=== PATIENT | female | born 1940 | race Caucasian/White ===

== ENCOUNTER 2019-12-31 10:06 | Inpatient (IN) ==
[2019-12-31] MEDS ORDERED: Acetaminophen 325 MG TABLET PO PRN (11:59)
[2019-12-31] MEDS ORDERED: *HR* HYDROcodone/Acet 5/325 mg TABLET PO PRN (11:59)
[2019-12-31] MEDS ORDERED: Naloxone 0.4 MG/ML INJ IVP PRN (11:59)
[2019-12-31] MEDS ORDERED: Ondansetron 4 MG/2 ML VIAL IVP PRN (11:59)
[2019-12-31] MEDS ORDERED: Mag Hydrox/Al Hydrox/Simeth 30 ML UDC PO PRN (11:59)
[2019-12-31] MEDS ORDERED: MOM Conc 10 ML UD.LIQ PO PRN (11:59)
[2019-12-31] MEDS ORDERED: *HR* Heparin 5,000 UNIT/ML VIAL IVP PRN ×2 (12:04)
[2019-12-31] MEDS: Heparin 25,000 UNIT/250 ML D5W 25,000 UNIT/250 ML IV.SOLN IVC SCH ×2 (13:14→16:04)
[2019-12-31] MEDS: Metoprolol XL (24 HR) Succ 50 MG TAB.ER.24H PO SCH (14:06)
[2019-12-31] MEDS ORDERED: Perflutren Lipid Microsphere 1.3 ML in 0.9 % Sodium Chloride 8.7 ML IVP ONE (19:02)
[2020-01-01 01:50] LABS: Hematocrit 41.8 % (35.3-44.9); Hemoglobin 13.8 g/dL (11.5-15.4); Mean Corpuscular Hemoglobin 30.5 pg (28.0-33.3); Mean Corpuscular Volume 92.5 fL (83.0-100.0); Mean Platelet Volume 10.2 fL (9.4-12.4); Platelet Count 202 K/mcL (140-400); Red Blood Count 4.52 M/mcL (3.82-4.97); Red Cell Distribution Width 12.4 % (11.5-14.5); White Blood Count 5.9 K/mcL (4.3-11.1)
[2020-01-01 01:56] LABS: Prothrombin Time 11.5 Seconds (9.4-12.1)
[2020-01-01 02:14] LABS: BUN/Creatinine Ratio 19 (6-26); Blood Urea Nitrogen 18 mg/dL (8-23); Calcium 9.6 mg/dL (8.6-10.3); Carbon Dioxide 23 mEq/L (23-29); Chloride 106 mEq/L (98-107); Chol/HDL Ratio 7.5 (0-4.9); Cholesterol 246 mg/dL (< 200); Glucose 90 mg/dL (70-105); HDL Cholesterol 33 mg/dL (40-59); Osmolality,Calculated 291 (280-300); Potassium 3.5 mEq/L (3.5-5.1); Sodium 140 mEq/L (136-145); Triglycerides 728 mg/dL (< 150); eGFR For African Americans > 60 (> 60); eGFR For Non-African Americans 56 (> 60)
[2020-01-01] MEDS: Multivit/Ca/Min/Fe/FA 1 TAB TABLET PO SCH (08:32)
[2020-01-01] MEDS: Aspirin 81 MG TAB.CHEW PO SCH (08:43)
[2020-01-01] MEDS: Metoprolol XL (24 HR) Succ 50 MG TAB.ER.24H PO SCH (08:43)
[2020-01-01] MEDS ORDERED: Metoprolol XL (24 HR) Succ 50 MG TAB.ER.24H PO SCH (09:00)
[2020-01-01] MEDS ORDERED: Nitroglycerin 1,000 MCG/10 ML VIAL IV ONE (11:04)
[2020-01-01] MEDS ORDERED: 0.9 % Sodium Chloride 1,000 ML ONE ×2 (11:04→11:11)
[2020-01-01] MEDS ORDERED: Heparin 1,000 UNITS/500 mL 500 ML ONE (11:04)
[2020-01-01] MEDS ORDERED: ISOVUE-370 200 ML INFUS..BTL ONE ×2 (11:04→12:11)
[2020-01-01] MEDS ORDERED: *HR* Heparin 10,000 UNIT/10 ML VIAL ONE (11:04)
[2020-01-01] MEDS ORDERED: *HR* Midazolam HCl 2 MG/2 ML VIAL ONE ×2 (11:35→12:27)
[2020-01-01] MEDS ORDERED: *HR* FentaNYL (PF) 100 MCG/2 ML VIAL ONE ×2 (11:36→12:27)
[2020-01-01] MEDS ORDERED: Tirofiban 12.5 MG/250ML 12.5 MG/250 ML BAG ONE (12:00)
[2020-01-01] MEDS ORDERED: Tirofiban 12.5 MG/250ML 12.5 MG/250 ML BAG IVC SCH (13:00)
[2020-01-02 06:27] LABS: Basophils % 0.7 %; Eosinophils # 0.1 K/mcL (0.0-0.6); Hematocrit 37.3 % (35.3-44.9); Hemoglobin 12.5 g/dL (11.5-15.4); Immature Granulocytes % 0.2 % (0-4); Lymphocytes # 1.5 K/mcL (0.6-4.6); Lymphocytes % 26.5 %; Mean Corpuscular HGB Conc 33.5 g/dL (31.6-35.5); Mean Corpuscular Hemoglobin 30.6 pg (28.0-33.3); Mean Corpuscular Volume 91.2 fL (83.0-100.0); Mean Platelet Volume 9.6 fL (9.4-12.4); Monocytes # 0.5 K/mcL (0.0-1.3); Monocytes % 8.2 %; Neutrophils # 3.5 K/mcL (1.6-8.9); Platelet Count 191 K/mcL (140-400); Red Blood Count 4.09 M/mcL (3.82-4.97); Red Cell Distribution Width 12.5 % (11.5-14.5); Segmented Neutrophils % 62.4 %; White Blood Count 5.6 K/mcL (4.3-11.1)
[2020-01-02 06:46] LABS: BUN/Creatinine Ratio 16 (6-26); Blood Urea Nitrogen 14 mg/dL (8-23); Calcium 9.3 mg/dL (8.6-10.3); Carbon Dioxide 24 mEq/L (23-29); Chloride 108 mEq/L (98-107); Glucose 111 mg/dL (70-105); Osmolality,Calculated 291 (280-300); Potassium 3.6 mEq/L (3.5-5.1); Sodium 140 mEq/L (136-145); eGFR For African Americans > 60 (> 60); eGFR For Non-African Americans > 60 (> 60)
[2020-01-02 07:15] VITALS: BP 131/73
[2020-01-02] MEDS ORDERED: lisinopriL 5 MG TABLET PO SCH (09:00)
[2020-01-02] MEDS ORDERED: Nitroglycerin 0.4 MG TAB.SUBL SL PRN (09:11)
[2020-01-02] MEDS: Multivit/Ca/Min/Fe/FA 1 TAB TABLET PO SCH (09:36)
[2020-01-02] MEDS: Metoprolol XL (24 HR) Succ 50 MG TAB.ER.24H PO SCH (09:36)
[2020-01-02] MEDS: Aspirin 81 MG TAB.CHEW PO SCH (09:36)
== END 2020-01-02 11:48 | disposition home or self-care (01) | DRG 246 ==
LOC: 2ANU → SUATTDRO 11:59
PROVIDERS: ADMIT Internal Medicine; ATTEND Family Medicine